=== PATIENT | female | born 1945 | race Caucasian/White ===

== ENCOUNTER 2018-06-19 09:48 | Emergency (ER) | payer MEDICARE, OTHER ==
[~2018-06-19] VITALS: Ht 154.9 cm; Wt 85.3 kg
[~2018-06-19 09:48] MED LIST: ASPI81CH PO; ASPI81EC PO; Ativan0.5 MG SL; CARV6.25 PO; CEPH500 PO; FURO20; FURO20 PO; FURO40 PO; GABA300 PO; GABA400 PO; GLIP10; INS70/30I SC; INSUASPI SC; INSULANI; INSULANI SC; LORA1 PO; METH10; METH10 PO; METO25ER PO; METO50 PO; POTA10T; POTA10T PO; SIMV20 PO; TRAM50; WARF5 PO; WARF6 PO
[2018-06-19 10:23] LABS: BASOPHILS ABSOLUTE AUTO 0.02 K/mm3 (0.00-0.23); BASOPHILS PERCENT AUTO 0 % (0-2); EOSINOPHILS ABSOLUTE AUTO 0.05 K/mm3 (0.00-0.68); EOSINOPHILS PERCENT AUTO 1 % (0-6); Hematocrit 43.3 % (33.0-51.0); IMMATURE GRAN ABSOLUTE AUTO 0.03 K/mm3 (0.00-0.10); IMMATURE GRAN PERCENT AUTO 1 % (0-1); LYMPHOCYTES PERCENT AUTO 18 % (21-46); MONOCYTES PERCENT AUTO 7 % (4-13); Mean Corpuscular HGB 29.2 pg (26.0-34.0); Mean Corpuscular HGB Conc 32.3 g/dL (31.5-36.5); Mean Corpuscular Volume 90 fL (80-100); NEUTROPHILS ABSOLUTE AUTO 4.57 K/mm3 (1.96-9.15); NEUTROPHILS PERCENT AUTO 74 % (41-73); Platelet Count 186 K/mm3 (150-400); RDW Coefficient Variation 13.3 % (11.7-14.2); RDW Standard Deviation 44.8 fL (35.1-46.3); Red Blood Cell Count 4.79 M/mm3 (3.80-5.20); White Blood Cell Count 6.17 K/mm3 (4.00-11.30)
[2018-06-19 10:47] LABS: Alanine Aminotransfer (ALT/SGP 35 U/L (12-78); Albumin, Blood 3.4 g/dL (3.4-5.0); Albumin/Globulin Ratio 0.8 (0.8-1.8); Alk Phos 73 U/L (50-136); Anion Gap 6 mmol/L (6-16); Aspartate Aminotrans (AST/SGOT 22 U/L (12-37); Bilirubin, Total 0.5 mg/dL (0.1-1.0); Blood Urea Nitrogen 11 mg/dL (8-24); Bun/Creatinine Ratio 19.3 (12.0-20.0); CO2, Blood 29 mmol/L (21-32); Calcium, Blood 8.7 mg/dL (8.5-10.1); Chloride, Blood 105 mmol/L (98-108); Creatinine, Blood 0.57 mg/dL (0.40-1.00); Globulin, Blood 4.2 g/dL (2.2-4.0); Glomerular Filtration Rate >60 (60-); Glucose, Blood 210 mg/dL (70-99); Potassium, Blood 4.2 mmol/L (3.5-5.5); Sodium, Blood 140 mmol/L (136-145); Total Protein, Blood 7.6 g/dL (6.4-8.2); Troponin I <0.015 ng/mL (0.000-0.040)
== END 2018-06-19 15:42 | disposition home or self-care (01) ==
LOC: ER 09:48
PROVIDERS: Physician Assistant
DX: I50.9 Heart failure, unspecified (principal); Z88.2 Allergy status to sulfonamides; Z88.1 Allergy status to other antibiotic agents; Z88.8 Allergy status to other drugs, medicaments and biological substances; Z79.899 Other long term (current) drug therapy; Z79.01 Long term (current) use of anticoagulants; Z79.4 Long term (current) use of insulin; Z79.82 Long term (current) use of aspirin; I48.91 Unspecified atrial fibrillation
CPT/HCPCS: 36415; 71046; 80053; 83880; 84484; 85025; 93005; 93010; 99285-25

== ENCOUNTER 2019-02-16 07:42 | Emergency (ER) | payer MEDICARE, OTHER ==
[~2019-02-16] VITALS: Ht 154.9 cm; Wt 84.4 kg
[2019-02-16] MEDS ORDERED: FURO40 PO (08:05)
[2019-02-16] MEDS ORDERED: POTA10T PO (08:05)
[2019-02-16] MEDS ORDERED: INSULANPEN SC (08:06)
[2019-02-16] MEDS ORDERED: NOVOLOG FL100 UNIT/1 SC (08:06)
[2019-02-16 09:02] LABS: BASOPHILS ABSOLUTE AUTO 0.02 K/mm3 (0.00-0.23); BASOPHILS PERCENT AUTO 0 % (0-2); EOSINOPHILS ABSOLUTE AUTO 0.01 K/mm3 (0.00-0.68); EOSINOPHILS PERCENT AUTO 0 % (0-6); Hematocrit 41.4 % (33.0-51.0); Hemoglobin 13.3 g/dL (11.5-16.0); IMMATURE GRAN PERCENT AUTO 1 % (0-1); LYMPHOCYTES ABSOLUTE AUTO 1.02 K/mm3 (0.84-5.20); LYMPHOCYTES PERCENT AUTO 7 % (21-46); MONOCYTES ABSOLUTE AUTO 1.15 K/mm3 (0.16-1.47); MONOCYTES PERCENT AUTO 8 % (4-13); Mean Corpuscular HGB 28.3 pg (26.0-34.0); Mean Corpuscular HGB Conc 32.1 g/dL (31.5-36.5); Mean Corpuscular Volume 88 fL (80-100); Mean Platelet Volume 10.4 fL (9.1-12.4); NEUTROPHILS ABSOLUTE AUTO 11.51 K/mm3 (1.96-9.15); NEUTROPHILS PERCENT AUTO 83 % (41-73); Platelet Count 183 K/mm3 (150-400); RDW Coefficient Variation 13.3 % (11.7-14.2); RDW Standard Deviation 43.1 fL (35.1-46.3); White Blood Cell Count 13.81 K/mm3 (4.00-11.30)
[2019-02-16 09:34] LABS: Alanine Aminotransfer (ALT/SGP 23 U/L (12-78); Albumin, Blood 3.4 g/dL (3.4-5.0); Albumin/Globulin Ratio 0.8 (0.8-1.8); Alk Phos 74 U/L (50-136); Anion Gap 6 mmol/L (6-16); Aspartate Aminotrans (AST/SGOT 18 U/L (12-37); Bilirubin, Total 1.1 mg/dL (0.1-1.0); Blood Urea Nitrogen 13 mg/dL (8-24); Bun/Creatinine Ratio 19.1 (12.0-20.0); CO2, Blood 30 mmol/L (21-32); Calcium, Blood 8.9 mg/dL (8.5-10.1); Chloride, Blood 102 mmol/L (98-108); Creatinine, Blood 0.68 mg/dL (0.40-1.00); Globulin, Blood 4.2 g/dL (2.2-4.0); Glomerular Filtration Rate >60 (60-); Glucose, Blood 217 mg/dL (70-99); Potassium, Blood 3.8 mmol/L (3.5-5.5); Sodium, Blood 138 mmol/L (136-145); Total Protein, Blood 7.6 g/dL (6.4-8.2)
[2019-02-16] MEDS ORDERED: Keflex500 MG PO (10:03)
[2019-02-17] MEDS ORDERED: GABA300 PO (19:44)
[2019-02-17] MEDS ORDERED: Coumadin2 MG PO (19:50)
[2019-02-17] MEDS ORDERED: Vitamin D2000 UNIT PO (19:53)
== END 2019-02-16 10:20 | disposition home or self-care (01) ==
LOC: ER 07:42
PROVIDERS: Emergency Medicine
DX: L03.115 Cellulitis of right lower limb (principal); E11.9 Type 2 diabetes mellitus without complications; I48.91 Unspecified atrial fibrillation; D72.829 Elevated white blood cell count, unspecified; Z88.2 Allergy status to sulfonamides; Z88.1 Allergy status to other antibiotic agents; Z88.8 Allergy status to other drugs, medicaments and biological substances; Z79.899 Other long term (current) drug therapy; Z79.01 Long term (current) use of anticoagulants; Z79.4 Long term (current) use of insulin
CPT/HCPCS: 36415; 73630; 80053; 85025; 96365; 96375; 99283-25; J2405; J3010

== ENCOUNTER 2019-02-17 18:20 | Inpatient (IN) | payer MEDICARE, OTHER ==
[~2019-02-17] VITALS: Ht 152.4 cm; Wt 84.4 kg
[~2019-02-17 18:20] MED LIST changes: +INSULANPEN SC; +Keflex500 MG PO; +NOVOLOG FL100 UNIT/1 SC
[2019-02-17 19:10] LABS: BASOPHILS ABSOLUTE AUTO 0.03 K/mm3 (0.00-0.23); BASOPHILS PERCENT AUTO 0 % (0-2); EOSINOPHILS ABSOLUTE AUTO 0.06 K/mm3 (0.00-0.68); EOSINOPHILS PERCENT AUTO 1 % (0-6); Hematocrit 39.6 % (33.0-51.0); Hemoglobin 12.9 g/dL (11.5-16.0); IMMATURE GRAN PERCENT AUTO 1 % (0-1); LYMPHOCYTES ABSOLUTE AUTO 1.64 K/mm3 (0.84-5.20); LYMPHOCYTES PERCENT AUTO 13 % (21-46); MONOCYTES ABSOLUTE AUTO 0.79 K/mm3 (0.16-1.47); MONOCYTES PERCENT AUTO 6 % (4-13); Mean Corpuscular HGB 29.3 pg (26.0-34.0); Mean Corpuscular HGB Conc 32.6 g/dL (31.5-36.5); Mean Corpuscular Volume 90 fL (80-100); Mean Platelet Volume 10.5 fL (9.1-12.4); NEUTROPHILS ABSOLUTE AUTO 9.72 K/mm3 (1.96-9.15); NEUTROPHILS PERCENT AUTO 79 % (41-73); Platelet Count 189 K/mm3 (150-400); RDW Coefficient Variation 13.2 % (11.7-14.2); RDW Standard Deviation 43.9 fL (35.1-46.3); White Blood Cell Count 12.34 K/mm3 (4.00-11.30)
[2019-02-17 19:34] LABS: Anion Gap 5 mmol/L (6-16); Blood Urea Nitrogen 12 mg/dL (8-24); Bun/Creatinine Ratio 17.1 (12.0-20.0); CO2, Blood 30 mmol/L (21-32); Chloride, Blood 100 mmol/L (98-108); Glomerular Filtration Rate >60 (60-); Glucose, Blood 249 mg/dL (70-99); Potassium, Blood 3.8 mmol/L (3.5-5.5); Sodium, Blood 135 mmol/L (136-145)
[2019-02-17] MEDS ORDERED: GABA300 PO (19:44)
[2019-02-17] MEDS ORDERED: Coumadin2 MG PO (19:50)
[2019-02-17] MEDS ORDERED: Vitamin D2000 UNIT PO (19:53)
[2019-02-17 20:58] LABS: International Normalized Ratio 1.69; Prothrombin Time Results 17.1 Sec (9.7-11.5)
[2019-02-18 04:25] LABS: BASOPHILS ABSOLUTE AUTO 0.03 K/mm3 (0.00-0.23); BASOPHILS PERCENT AUTO 0 % (0-2); EOSINOPHILS ABSOLUTE AUTO 0.18 K/mm3 (0.00-0.68); EOSINOPHILS PERCENT AUTO 2 % (0-6); Hematocrit 35.8 % (33.0-51.0); Hemoglobin 11.2 g/dL (11.5-16.0); IMMATURE GRAN PERCENT AUTO 1 % (0-1); LYMPHOCYTES ABSOLUTE AUTO 1.91 K/mm3 (0.84-5.20); LYMPHOCYTES PERCENT AUTO 16 % (21-46); MONOCYTES ABSOLUTE AUTO 0.98 K/mm3 (0.16-1.47); MONOCYTES PERCENT AUTO 8 % (4-13); Mean Corpuscular HGB 28.1 pg (26.0-34.0); Mean Corpuscular HGB Conc 31.3 g/dL (31.5-36.5); Mean Corpuscular Volume 90 fL (80-100); Mean Platelet Volume 10.5 fL (9.1-12.4); NEUTROPHILS ABSOLUTE AUTO 8.69 K/mm3 (1.96-9.15); NEUTROPHILS PERCENT AUTO 73 % (41-73); Platelet Count 179 K/mm3 (150-400); RDW Coefficient Variation 13.3 % (11.7-14.2); RDW Standard Deviation 44.1 fL (35.1-46.3); Red Blood Cell Count 3.99 M/mm3 (3.80-5.20); White Blood Cell Count 11.89 K/mm3 (4.00-11.30)
[2019-02-18 04:40] LABS: Anion Gap 5 mmol/L (6-16); Blood Urea Nitrogen 11 mg/dL (8-24); Bun/Creatinine Ratio 14.2 (12.0-20.0); CO2, Blood 32 mmol/L (21-32); Calcium, Blood 8.8 mg/dL (8.5-10.1); Chloride, Blood 102 mmol/L (98-108); Creatinine, Blood 0.78 mg/dL (0.40-1.00); Glomerular Filtration Rate >60 (60-); Glucose, Blood 138 mg/dL (70-99); International Normalized Ratio 1.76; Potassium, Blood 3.8 mmol/L (3.5-5.5); Prothrombin Time Results 17.7 Sec (9.7-11.5); Sodium, Blood 139 mmol/L (136-145)
--- NOTE | 2019-02-18 06:40 | NUR ---
SHIFT SUMMARY PT WAS A NEW ADMIT DURING THE NIGHT, ARRIVING ON THE FLOOR AT 2210. SHE WAS ADMITTED FOR RLE CELLULITIS. PT IS A&O X 4, AND A SBA IN THE ROOM WITH A FWW. SHE DENIED ANY COMPLAINTS OF ACUTE PAIN, NAUSEA OR SOB. VITAL SIGNS STABLE SINCE ADMISSION. PT SLEPT WELL DURING THE NIGHT. NO OTHER ACUTE CHANGES IN PT CONDITION NOTED SINCE ADMISSION. WILL CONTINUE TO MONITOR AND TREAT PER EMAR UNTIL HAND OFF TO DAY SHIFT RN.
--- NOTE | 2019-02-18 11:37 | NUR ---
0700 [facility] care Pateint gave student permission to provide care on 02/18/19 from [id number].
--- NOTE | 2019-02-18 17:02 | NUR ---
SHIFT SUMMARY NO ACUTE CHANGES. PATIENT MEDICATED X2 FOR PAIN THIS SHIFT. DENIES NAUSEA AND SHORTNESS OF BREATH. PATIENT UP SBA W/FWW TO BR. PATIENT U IN RECLINER THIS AFTERNOON. PATIENT VISITING WITH FRIENDS AND WATCHING TV TODAY. CALL LIGHT IN REACH.
[2019-02-19 05:10] LABS: BASOPHILS ABSOLUTE AUTO 0.03 K/mm3 (0.00-0.23); BASOPHILS PERCENT AUTO 0 % (0-2); EOSINOPHILS ABSOLUTE AUTO 0.18 K/mm3 (0.00-0.68); EOSINOPHILS PERCENT AUTO 2 % (0-6); Hematocrit 36.2 % (33.0-51.0); Hemoglobin 11.4 g/dL (11.5-16.0); IMMATURE GRAN ABSOLUTE AUTO 0.08 K/mm3 (0.00-0.10); IMMATURE GRAN PERCENT AUTO 1 % (0-1); LYMPHOCYTES ABSOLUTE AUTO 1.35 K/mm3 (0.84-5.20); LYMPHOCYTES PERCENT AUTO 16 % (21-46); MONOCYTES ABSOLUTE AUTO 0.81 K/mm3 (0.16-1.47); MONOCYTES PERCENT AUTO 10 % (4-13); Mean Corpuscular HGB Conc 31.5 g/dL (31.5-36.5); Mean Corpuscular Volume 89 fL (80-100); Mean Platelet Volume 10.3 fL (9.1-12.4); NEUTROPHILS ABSOLUTE AUTO 6.04 K/mm3 (1.96-9.15); NEUTROPHILS PERCENT AUTO 71 % (41-73); Platelet Count 217 K/mm3 (150-400); RDW Coefficient Variation 13.3 % (11.7-14.2); RDW Standard Deviation 43.3 fL (35.1-46.3); Red Blood Cell Count 4.07 M/mm3 (3.80-5.20); White Blood Cell Count 8.49 K/mm3 (4.00-11.30)
[2019-02-19 05:23] LABS: International Normalized Ratio 1.44; Prothrombin Time Results 14.8 Sec (9.7-11.5)
--- NOTE | 2019-02-19 06:38 | NUR ---
PAN DEVULCANIZER HELPER SUMMARY PT SLEPT WELL THROUGHOUT THE NIGHT. PLEASANT AND COOPERATIVE. CALLS APPRIOPRATELY EACH TIME. VSS. MEDICATED PER EMAR FOR RIGHT LEG CELLULITIS PAIN. ANTIBIOTICS GIVEN. WILL CONTINUE TO MONITOR.
--- NOTE | 2019-02-19 16:06 | NUR ---
SUMMARY: PT ADMITTED FOR CELLULITIS OF RLE. NO ACUTE CHANGE TODAY. A/O, VSS. CSM INTACT TO R FOOT, NO OPEN SORES NOTED. PT UP WITH SASKIA CHERY IN ROOM. ENCOURAGED ELEVATING R FOOT. PT RECIEVED PAIN MEDS PER EMAR. PLAN IS CONTINUE IV ANTIBIOTICS AND MONITOR. WILL PASS REPORT TO SARAH ALEMAN.
[2019-02-20 05:03] LABS: International Normalized Ratio 1.55; Prothrombin Time Results 15.8 Sec (9.7-11.5)
--- NOTE | 2019-02-20 05:55 | NUR ---
SIDEROGRAPHER SUMMARY PT SLEPT WELL THROUGHOUT THE NIGHT. DENIED NAUSEA, SOB. ANTIBIOTICS GIVEN PER EMAR. PT QUESTIONED STAFF ABOUT WHY SHE WAS RECIVEING INSULIN AT A DIFFERENT TIME THAN WHAT SHE NORMALLY DOES AT HOME. WAS EXPLAINED TO THE PT THAT INSULIN WAS TO BE GIVEN AT BEDTIME PER 'S ORDERS AND A LOT OF THE TIMES MEDS PTS RECIVE IN THE HOSPITAL ARE NOT ALWAYS GOING TO MATCH THE TIMING THEY RECIVE AT HOME. PT SEEMED A LITTLE FRUSTRATED ABOUT THIS. NO ACUTE CHANGES. PT MIGHT BE DISCHARGED TODAY.
[2019-02-20] MEDS ORDERED: ACET325 PO (10:54)
[2019-02-20] MEDS ORDERED: BISA5EC PO (10:56)
[2019-02-20] MEDS ORDERED: CEPH500 PO (10:58)
[2019-02-20] MEDS ORDERED: CULTURELLE1 EACH PO (10:59)
--- NOTE | 2019-02-20 11:57 | NUR ---
PT DISCHARGED AT 1130. AOX4 AND COOPERATIVE OF CARE. DENIED ANY PAIN AND WAS ABLE TO AMBULATE WITH MINIMAL ASSISTANCE. PT HAD ALL PAPERS REVIEWED AND EDUCATIONAL MATERIAL PROVIDED. PERSONAL BELONGINGS WITH PT. APPOINTMENT SCHEDULED FOR 02/25 @ [address] FRANCIS. NO DISTRESS NOTED, PT ESCORTED VIA WHEEL CHAIR.
== END 2019-02-20 11:43 | disposition home or self-care (01) | DRG 603 ==
LOC: ER 18:20 → MEDS 21:53 → ENPENDDIS 02-20 10:30 → MEDS 02-20 11:43
PROVIDERS: Internal Medicine; Physician Assistant; ADMIT Family Medicine
DX: L03.115 Cellulitis of right lower limb (principal); F11.20 Opioid dependence, uncomplicated; E87.1 Hypo-osmolality and hyponatremia; E11.9 Type 2 diabetes mellitus without complications; I48.0 Paroxysmal atrial fibrillation; G89.29 Other chronic pain; Z79.4 Long term (current) use of insulin; Z95.1 Presence of aortocoronary bypass graft; Z79.01 Long term (current) use of anticoagulants
CPT/HCPCS: 36415; 80048; 82947; 83605; 85025; 85610; 96365; 99284-25; J0690; J1815; J1885; J2185; J7050

== ENCOUNTER 2021-02-21 08:58 | Observation (INO) | payer MEDICARE, OTHER ==
[~2021-02-21] VITALS: Ht 154.9 cm; Wt 83.9 kg
[~2021-02-21 08:58] MED LIST changes: +ACET325 PO; +BISA5EC PO; +CULTURELLE1 EACH PO; +Coumadin2 MG PO; +Vitamin D2000 UNIT PO
[2021-02-21 09:45] LABS: BASOPHILS ABSOLUTE AUTO 0.02 K/mm3 (0.00-0.23); BASOPHILS PERCENT AUTO 0 % (0-2); EOSINOPHILS ABSOLUTE AUTO 0.08 K/mm3 (0.00-0.68); EOSINOPHILS PERCENT AUTO 1 % (0-6); Hemoglobin 13.6 g/dL (11.5-16.0); IMMATURE GRAN ABSOLUTE AUTO 0.03 K/mm3 (0.00-0.10); IMMATURE GRAN PERCENT AUTO 0 % (0-1); LYMPHOCYTES ABSOLUTE AUTO 0.98 K/mm3 (0.84-5.20); LYMPHOCYTES PERCENT AUTO 12 % (21-46); MONOCYTES ABSOLUTE AUTO 0.48 K/mm3 (0.16-1.47); MONOCYTES PERCENT AUTO 6 % (4-13); Mean Corpuscular HGB 27.9 pg (26.0-34.0); Mean Corpuscular HGB Conc 31.6 g/dL (31.5-36.5); Mean Corpuscular Volume 88 fL (80-100); Mean Platelet Volume 9.7 fL (9.1-12.4); NEUTROPHILS ABSOLUTE AUTO 6.79 K/mm3 (1.96-9.15); NEUTROPHILS PERCENT AUTO 81 % (41-73); Platelet Count 216 K/mm3 (150-400); RDW Coefficient Variation 14.6 % (11.7-14.2); RDW Standard Deviation 46.7 fL (35.1-46.3); Red Blood Cell Count 4.88 M/mm3 (3.80-5.20); White Blood Cell Count 8.38 K/mm3 (4.00-11.30)
[2021-02-21 09:54] LABS: Alanine Aminotransfer (ALT/SGP 29 U/L (12-78); Albumin, Blood 3.3 g/dL (3.4-5.0); Albumin/Globulin Ratio 0.7 (0.8-1.8); Alk Phos 84 U/L (50-136); Anion Gap 3 mmol/L (6-16); Aspartate Aminotrans (AST/SGOT 23 U/L (12-37); Blood Urea Nitrogen 12 mg/dL (8-24); CO2, Blood 29 mmol/L (21-32); Calcium, Blood 9.3 mg/dL (8.5-10.1); Chloride, Blood 107 mmol/L (98-108); Creatinine, Blood 0.71 mg/dL (0.40-1.00); Globulin, Blood 4.7 g/dL (2.2-4.0); Glomerular Filtration Rate >60 (60-); Glucose, Blood 165 mg/dL (70-99); Potassium, Blood 4.1 mmol/L (3.5-5.5); Sodium, Blood 139 mmol/L (136-145); Troponin I <0.015 ng/mL (0.000-0.040)
[2021-02-21 11:07] LABS: Source, Urine Clean Catch
[2021-02-21 11:42] LABS: Bilirubin, Urine Neg (Neg); Blood, Urine Neg (Neg); Glucose Qualitative, Urine Neg (Neg); Ketones, Urine Neg (Neg); Leukocyte Esterase, Urine Neg (Neg); Nitrite, Urine Neg (Neg); Protein, Urine 1+ (Neg); Specific Gravity, Urine 1.015 (1.003-1.022); Urobilinogen, Urine NORM (Normal); pH, Urine 6.5 (5.0-8.0)
[2021-02-21 12:00] LABS: Appearance, Urine Clear (Clear); Color, Urine Yellow (P-Yellow)
[2021-02-21 13:12] LABS: International Normalized Ratio 1.45; Prothrombin Time Results 14.9 Sec (9.7-11.5)
--- NOTE | 2021-02-21 14:20 | NUR ---
echocardiogram complete
--- NOTE | 2021-02-21 17:50 | NUR ---
SHIFT SUMMARY PATIENT WAS AN ADMIT FROM THE ED AT 1530. PATIENT WAS ADMITTED FOR HYPERTENSION CRISIS AND BP HAS BEEN IN THE 180S / 70S. PATIENT IS ALERT AND ORIENTED X4. PATIENT IS PLEASENT AND COOPERATIVE WITH CARE. NO ACUTE EVENTS THIS SHIFT. NO COMPLAINTS OF PAIN, SOB, NAUSEA, OR VOMITTING. CALL LIGHT IN REACH. WILL MONITOR UNTIL SHIFT CHANGE.
[2021-02-22 01:52] LABS: Hematocrit 37.3 % (33.0-51.0); Hemoglobin 12.2 g/dL (11.5-16.0); Mean Corpuscular HGB 28.5 pg (26.0-34.0); Mean Corpuscular HGB Conc 32.7 g/dL (31.5-36.5); Mean Corpuscular Volume 87 fL (80-100); Platelet Count 214 K/mm3 (150-400); RDW Coefficient Variation 14.5 % (11.7-14.2); RDW Standard Deviation 46.5 fL (35.1-46.3); Red Blood Cell Count 4.28 M/mm3 (3.80-5.20); White Blood Cell Count 9.11 K/mm3 (4.00-11.30)
[2021-02-22 02:06] LABS: International Normalized Ratio 1.48; Prothrombin Time Results 15.1 Sec (9.7-11.5)
[2021-02-22 02:11] LABS: Anion Gap 2 mmol/L (6-16); Blood Urea Nitrogen 17 mg/dL (8-24); CHOL/HDL RATIO 4.8; CO2, Blood 32 mmol/L (21-32); Calcium, Blood 9.1 mg/dL (8.5-10.1); Chloride, Blood 105 mmol/L (98-108); Cholesterol 235 mg/dL (50-200); Creatinine, Blood 0.85 mg/dL (0.40-1.00); Glomerular Filtration Rate >60 (60-); HDL Cholesterol 49 mg/dL (>39); LDL/HDL RATIO 3.3; Low Density Lipoprotein Chol 160 mg/dL (0-110); Potassium, Blood 3.9 mmol/L (3.5-5.5); Sodium, Blood 139 mmol/L (136-145); Triglycerides 131 mg/dL (30-160); Troponin I <0.015 ng/mL (0.000-0.040); Very Low Density Lipoprot Chol 26 mg/dL (6-32)
[2021-02-22 02:12] LABS: Glucose, Blood 153 mg/dL (70-99)
--- NOTE | 2021-02-22 05:12 | NUR ---
SHIFT [place] PT ALERT AND ORIENTED. RESTING ON BED DURING. HR RATE DROPPED TO 44. PT EXPRESSED THAT SOMETHING SHE HAS BEFORE. NO ACUTE DISTRESS AT THIS TIME.
[2021-02-22] MEDS ORDERED: LISI5 PO (13:09)
[2021-02-22] MEDS ORDERED: ATOR10 PO (13:11)
[2021-02-22] MEDS ORDERED: MIRALAX17 GM PO (13:11)
[2021-02-22] MEDS ORDERED: METF500 PO (13:11)
--- NOTE | 2021-02-22 16:43 | NUR ---
PT DISCHARGED HOME @ 1615, DISCHARGE TEACHING DONE.
== END 2021-02-22 16:43 | disposition home or self-care (01) ==
LOC: ER 08:58 → ERHOLD 08:59 → MEDS 15:26 → ENPENDDIS 02-22 12:06 → MEDS 02-22 16:43
PROVIDERS: Emergency Medicine; ADMIT Internal Medicine
DX: I16.0 Hypertensive urgency (principal); I11.9 Hypertensive heart disease without heart failure; E11.9 Type 2 diabetes mellitus without complications; E78.5 Hyperlipidemia, unspecified; I27.20 Pulmonary hypertension, unspecified; I48.0 Paroxysmal atrial fibrillation; I25.10 Atherosclerotic heart disease of native coronary artery without angina pectoris; E66.9 Obesity, unspecified; G89.29 Other chronic pain; M54.9 Dorsalgia, unspecified; Z79.01 Long term (current) use of anticoagulants; Z79.4 Long term (current) use of insulin; Z95.1 Presence of aortocoronary bypass graft; Z88.1 Allergy status to other antibiotic agents; Z88.2 Allergy status to sulfonamides; Z88.8 Allergy status to other drugs, medicaments and biological substances; Z68.35 Body mass index [BMI] 35.0-35.9, adult
CPT/HCPCS: 36415; 71045; 80048; 80053; 80061; 82947; 83036; 83880; 84443; 84484; 85025; 85027; 85610; 85730; 93005; 93010; 93306; 93970; A9270; J0360; J1815; J1940

== ENCOUNTER 2022-05-22 20:16 | Inpatient (IN) | payer MEDICARE, OTHER ==
[~2022-05-22] VITALS: Ht 152.4 cm; Wt 78.7 kg
[~2022-05-22 20:16] MED LIST changes: +ATOR10 PO; +LISI20 PO; +METF500 PO; +MIRALAX17 GM PO
[2022-05-22 21:15] LABS: BASOPHILS ABSOLUTE AUTO 0.03 K/mm3 (0.00-0.23); BASOPHILS PERCENT AUTO 0 % (0-2); EOSINOPHILS ABSOLUTE AUTO 0.06 K/mm3 (0.00-0.68); EOSINOPHILS PERCENT AUTO 1 % (0-6); Hematocrit 35.5 % (33.0-51.0); Hemoglobin 11.6 g/dL (11.5-16.0); IMMATURE GRAN ABSOLUTE AUTO 0.14 K/mm3 (0.00-0.10); IMMATURE GRAN PERCENT AUTO 2 % (0-1); LYMPHOCYTES ABSOLUTE AUTO 1.08 K/mm3 (0.84-5.20); LYMPHOCYTES PERCENT AUTO 11 % (21-46); MONOCYTES ABSOLUTE AUTO 0.48 K/mm3 (0.16-1.47); MONOCYTES PERCENT AUTO 5 % (4-13); Mean Corpuscular HGB Conc 32.7 g/dL (31.5-36.5); Mean Corpuscular Volume 86 fL (80-100); Mean Platelet Volume 9.7 fL (9.1-12.4); NEUTROPHILS PERCENT AUTO 81 % (41-73); Platelet Count 218 K/mm3 (150-400); RDW Coefficient Variation 14.7 % (11.7-14.2); RDW Standard Deviation 45.6 fL (35.1-46.3); Red Blood Cell Count 4.15 M/mm3 (3.80-5.20); White Blood Cell Count 9.49 K/mm3 (4.00-11.30)
[2022-05-22 21:33] LABS: Albumin, Blood 3.4 g/dL (3.4-5.0); Albumin/Globulin Ratio 0.7 (0.8-1.8); Bilirubin, Total 0.9 mg/dL (0.1-1.0); Calcium, Blood 9.2 mg/dL (8.5-10.1); Creatinine, Blood 1.04 mg/dL (0.40-1.00); Globulin, Blood 4.6 g/dL (2.2-4.0); Potassium, Blood 4.7 mmol/L (3.5-5.5)
[2022-05-22] MEDS ORDERED: PIOGLITAZONE HC15 MG PO (21:36)
[2022-05-22] MEDS ORDERED: NAPROXEN500 MG PO (21:36)
[2022-05-22 22:22] LABS: Influenza A, PCR NEGATIVE (NEGATIVE); Influenza B, PCR NEGATIVE (NEGATIVE); Resp Syncytial Virus, PCR NEGATIVE (NEGATIVE); SARS-Cov-2 (COVID-19) PCR, MMC NEGATIVE (NEGATIVE)
[2022-05-22 23:58] LABS: International Normalized Ratio 1.41; Prothrombin Time Results 14.5 Sec (9.7-11.5)
--- NOTE | 2022-05-23 01:04 | NUR ---
ASSUMPTION OF CARE THIS RN ASSUMED CARE OF PT AT 0000. REPORT FROM LOVE [facility]. PT ARRIVED VIA ER GURNEY ON BIPAP, SETTINGS: 15/10 W/FIO2 OF 45%. PT TRANSFERRED TO PCU HOSPITAL BED. PT REPORTS MILD SOB, BUT STATES "IT IS BETTER SINCE ARRIVING AND BEING ON THIS MACHINE". PT TOLERATING BIPAP WELL. PT DENIES CP OR PRESSURE, DENIES GENERAL PAIN. PT APPEARS ANA AND PRETTY TIRED. A&0 X4, ANSWERING AND RESPONDING TO QUESTION APPROPRIATELY. VS; BP 117/69, SR W/HR OF 76, RR 18, SPO2 97% ON BIPAP, TEMP 98.7. MODERATE AMOUNT OF EDEMA NOTED IN EXTREMITIES. PT REPORTS THIS IS NOT NEW. PT HAS NITRO PATCH IN PLACE, PLACED IN ER. SKIN IS OVERALL DRY, FRAGILE AND VARIOUS SCABS AND BRUISING T/O. YEAST/FUNGAL INFECTION NOTED IN PANNUS AREA UNDER SKINFOLDS. PT STATES SHE HAS HAD THIS A WHILE. MOJICA IN PLACE AND DRAINING CLEAR YELLOW URINE TO GRAVITY. PT ORIENTED TO ROOM. DENIES ANY NEEDS OR CONCERNS AT THIS TIME. CALL LIGHT IN REACH AND BED IN LOWEST POSITION
[2022-05-23 04:07] LABS: International Normalized Ratio 1.52; Prothrombin Time Results 15.5 Sec (9.7-11.5)
[2022-05-23 04:11] LABS: Bun/Creatinine Ratio 23.6 (12.0-20.0); Calcium, Blood 8.5 mg/dL (8.5-10.1); Creatinine, Blood 1.1 mg/dL (0.40-1.00); Potassium, Blood 4.5 mmol/L (3.5-5.5)
--- NOTE | 2022-05-23 05:59 | NUR ---
SHIFT SUMMARY PT REMAINS A&O. PT REPORTS SHE IS FEELING BETTER AND SOB HAS IMPROVED SOME. THIS RN DID NOT NOTE ANY SOB OR DIFFICULTY BREATHING SINCE TRANSFER TO PCU. PT WORE BIPAP MOST OF THE NIGHT AND THEN SWITCHED TO 6L VIA NC, SPO2 92 - 96%. PT STILL CURRENTLY ON 6L AND MAINTAINING WELL. PT RESTED ON AND OFF THROUGHOUT NIGHT BUT "NOT MUCH". VSS THROUGHOUT SHIFT, BP HAVE DECREASED SINCE ADMISSION. SBP NOW 120'S - 130'S. NO ACUTE CHANGES FROM ASSUMPTION OF CARE NOTE. BIPAP ON STANDBY AT BEDSIDE. MOJICA IN PLACE AND DRAINING TO GRAVITY; 1300 MLS OUT THIS SHIFT. CALL LIGHT IN REACH AND BED IN LOWEST POSITION. WILL UPDATE ON COMING RN
[2022-05-23] MEDS ORDERED: METO25 PO (07:37)
--- NOTE | 2022-05-23 17:06 | NUR ---
SHIFT SUMMARY NO ACUTE CHANGES THIS SHIFT. PT A&OX4, SP02>90% ON RA. DENIES SOB. TELEMETRY SHOWS A PACED, HR 60'S. WILL GO TO 70'S-100'S W/ AMBULATION. PT C/O OF INTERMITTENT "SHORT BURSTS" OF CP, COMES AND GOES. INCREASES W/ ANXIETY/WORRYING. A FEW 5 BEAT RUNS OF VTACH PER CISTERN ROOM OPERATOR WELL ONE BBB FLIP FOR A BRIEF PERIOD, SEE TELE STRIP IN CHART. PT DENIES PAIN. RUQ ABD TENDER. C/O OF CONSTIPATION. FLEET ENEMA, STOOL SOFTNER, MIROLAX, GIVEN PER EMAR. BROWN COW GIVEN W/ NO SUCCESS. UP TO BSC W/ MINIMAL HELP. ENCOURAGED MOVEMENT. PT CONTINUES TO PASS A LOT OF GAS. VOIDED W/ URINAL AT BEDSIDE. PT RECEIVED FIRST PORTION OF STRESS TEST TODAY, AWAITING SECOND PORTION IN MORNING. NO CAFFIENE. CALL LIGHT IN REACH.
--- NOTE | 2022-05-23 17:50 | NUR ---
SHIFT SUMMARY NO ACUTE CHANGES THIS SHIFT. PT A&OX4. SP02>90% oN 4L NC. STATES BREATHING FEELS "SO MUCH BETTER" THAN YESTERDAY. CURRENTLY DIURESING. TELEMETRY SHOWS MOSTLY NSR, HR 70'S. VSS. C/O OF BACK/LEG PAIN. MEDICATED PER EMAR X2. MOJICA CATHETER DRAINING CLEAR YELLOW URINE TO GRAVITY. NO BM THIS SHIFT. RESTING IN ROOM. CALL LIGHT IN REACH.
--- NOTE | 2022-05-23 20:25 | NUR ---
ASSUMPTION OF CARE THIS RN ASSUMED CARE OF PT AT 1900. PT SITTING UP IN BED W/HOB ELEVATED AND APPEARS TO BE COMFORTABLE. PT ON 4 L VIA NC, SPO0 94%. PT DENIES SOB OR DIFFICULTY BREATHING. REPORTS A "BIG IMPROVEMENT" SINCE ADMISSION. PT DOES NOT APPEAR TO BE IN RESPIRATORY DISTRESS OR HAVING ANY DIFFICULTY BREATHING AT THIS TIME. RR AND WOB WNL. VS; BP 177/64, HR 92, RR 16, SPO2 94%, TEMP 97.9. PT DENIES HEADACHE OR GENERAL PAIN AT THIS TIME. DENIES N/V, LIGHTHEADNESS OR DIZZINESS. DENIES CP OR PRESSURE. PT DOES REPORT BEING "TIRED". BUT EXPRESSES NO OTHER CONCERNS OR NEEDS AT THIS TIME. MOJICA CATHETER IN PLACE AND DRAINING TO GRAVITY; DRAINING CLEAR, YELLOW URINE. CALL LIGHT IN REACH AND BED IN LOWEST POSITION.
--- NOTE | 2022-05-23 23:04 | NUR ---
UPDATE INITIAL VS SHOWED SBP OF 177. THIS RN ADMINSTERED 10 MG OF HYDRALAZINE IV PER EMAR. REASSESSMENT OF BP SHOWS 159/70. 2100 LOPRESSOR ALSO ADMINSTERED AT THIS TIME. AFTER ADMINISTRATION OF HYDRALAZINE PT REPORTS FEELING "HOT" AND THAT HER "HEART WAS BEATING FAST". MONITORED SHOWED HR OF 100 DURING THIS TIME. BY THE TIME THIS RN ANSWERED CALL LIGHT FOR THIS CONCERN, PT STATES THAT BOTH HAVE SUBSIDED. MONITOR SHOWED HR OF 92 WHEN RN IN ROOM. PT APPEARS MILDLY FLUSHED. SINCE PT STATES IT IS GONE AND SHE FEELS BETTER. CALL LIGHT IN REACH AND BED IN LOWEST POSITION
[2022-05-24 04:33] LABS: International Normalized Ratio 1.67
--- NOTE | 2022-05-24 04:51 | NUR ---
UPDATE 0400 VITAL SIGNS SHOWED BP 0F 169/63. 10 MG OF HYDRALAZINE IV ADMINISTERED. REASSESSMENT OF BP SHOWS 150/54. PT DENIES ANY CHANGES OR SX. CALL LIGHT IN REACH AND BED IN LOWEST POSITION
--- NOTE | 2022-05-24 05:45 | NUR ---
SHIFT SUMMARY PT REMAINS A&O X4. PT DENIES SOB THROUGHOUT SHIFT, CURRENTLY ON 4 L AND HAS BEEN THROUGHOUT THIS SHIFT. SPO2 93 - 96%. NO RESPIRATORY DISTRESS NOTED. PT DID HAVE HTN X2 WHEN VS CHECKED (SEE NURSING NOTE). PT MEDICATED WITH 10 MG OF HYDRALAZINE IV X2. REASSESSMENTS DID SHOW SOME IMPROVEMENTS. CBG STABLE. PT ENCOURAGED TO REPOSITION THROUGHOUT SHIFT AND EDUCATION ON PRESSURE ULCER PREVENTION AND IMPORTANCE OF REPOSITIONING. PT VERBALIZED UNDERSTANDING. MOJICA CATHETER IN PLACE DRAINING CLEAR YELLOW URINE TO GRAVITY. NO OTHER ACUTE CHANGES THROUGHOUT SHIFT. PT IS RESTING IN ROOM CURRENTLY. CALL LIGHT IN REACH AND BED IN LOWEST POSITION. WILL UPDATE ONCOMING RN.
--- NOTE | 2022-05-24 17:53 | NUR ---
SHIFT SUMMARY NO ACUTE CHANGES THIS SHIFT. VSS. SP02>90% ON 4L NC. PT CHANGED TO MEDICAL STATUS, NO TELE. C/O OF LEG PAIN, MEDICATED X2 PER EMAR THIS SHIFT. MOJICA CATHETER DRAINING TO GRAVITY. NO BM. PT UP IN CHAIR THIS AFTERNOON, AMBULATED 1 PERSON ASSIST. DENIED SOB. CALL LIGHT IN REACH. PT STATES LOOKING FORWARD TO GOING HOME IN THE MORNING.
--- NOTE | 2022-05-24 22:06 | NUR ---
TRANSFER TO MEDICAL FLOOR [id number] PT A&Ox4, CALLS AND COMMUNICATES NEEDS APPROPRIATELY. TITRATED PT TO 3L O2 VIA NC, Sp02> 92%, DENIES SOB. BP ELEVATED, ADMINISTERED SCHEDULED BP MANAGMENT MEDICATIONS. PT NOT ON TELE. DENIES CP/PRESSURE. MOJICA CATHETER IN PLACE, PATENT, DRAINING CLEAR YELLOW URINE TO GRAVITY. REPORT GIVEN TO MEDICAL FLOOR RN. PT TRANSFERED TO MEDICAL FLOOR 338 VIA HOSPITAL BED WITH ALL BELONGINGS AT APPROXIMATELY 2200 BY CLINICAL STAFF.
[2022-05-25 09:09] LABS: International Normalized Ratio 1.56; Prothrombin Time Results 15.9 Sec (9.7-11.5)
[2022-05-25 09:12] LABS: Bun/Creatinine Ratio 29.3 (12.0-20.0); Calcium, Blood 9.5 mg/dL (8.5-10.1); Creatinine, Blood 1.47 mg/dL (0.40-1.00); Potassium, Blood 4.6 mmol/L (3.5-5.5)
[2022-05-25] MEDS ORDERED: AMLO5 PO (12:35)
[2022-05-25] MEDS ORDERED: METO50ER PO (12:48)
[2022-05-25 15:21] LABS: Bun/Creatinine Ratio 32.9 (12.0-20.0); Calcium, Blood 9.2 mg/dL (8.5-10.1); Creatinine, Blood 1.4 mg/dL (0.40-1.00); Potassium, Blood 4.8 mmol/L (3.5-5.5)
--- NOTE | 2022-05-25 18:04 | NUR ---
SHIFT SUMMARY PT A&OX4 AND IN PLEASENT MOOD T/O SHIFT. SHOWERED THIS SHIFT, BEDDING CHANGED. TOLERATING PO INTAKE WELL AT THIS TIME. PROBABLE DC TOMORROW PENDING LABS. AMBULATING ONE PERSON ASSIST. PAIN MEDICATED PER EMAR. HOME O2 @ BEDSIDE. CALL LIGHT W/IN REACH. 1X FWW. PT C/O CONSTIPATION, PLAN TO MEDICATE PER EMAR.
--- NOTE | 2022-05-26 06:00 | NUR ---
END OF SHIFT NURSING REPORT - PM Patient is a 76 y/o female admitted for acute on chronic CHF. She is AOX4, declines any pain or discomfort. Kuhn discontinued this yesterday afternoon, and has voided x4, denies any pressure or pain with urination. No acute events overnight, plan to Dc home today.
[2022-05-26 06:26] LABS: International Normalized Ratio 1.59; Prothrombin Time Results 16.2 Sec (9.7-11.5)
[2022-05-26 08:53] LABS: Magnesium, Blood 2.5 mg/dL (1.6-2.4)
[2022-05-26 08:56] LABS: Bun/Creatinine Ratio 35.4 (12.0-20.0); Calcium, Blood 9.2 mg/dL (8.5-10.1); Creatinine, Blood 1.58 mg/dL (0.40-1.00); Potassium, Blood 4.8 mmol/L (3.5-5.5)
--- NOTE | 2022-05-26 13:15 | NUR ---
DISCHARGE DC COMPLETE PT WAITING FOR RIDE AT THIS TIME, IV REMOVED. TOLERATING PO INTAKE, AMBULATING 1X. DENIES PAIN. CALL LIGHT W/IN REACH. MEDS FAXED. VSS. GALINA OTERO YESTERDAY, MULTIPLE VOIDS.
== END 2022-05-26 15:34 | disposition home health service (06) | DRG 291 ==
LOC: ER 20:16 → PCU 23:48 → MEDS 05-24 22:07 → ENPENDDIS 05-25 13:27 → MEDS 05-26 15:34
PROVIDERS: Student in an Organized Health Care Education/Training Program; ADMIT Internal Medicine
PROC: 5A09357 Assistance with Respiratory Ventilation, Less than 24 Consecutive Hours, Continuous Positive Airway Pressure (ICD-10-PCS; principal; 2022-05-22)
DX: I11.0 Hypertensive heart disease with heart failure (principal); I50.33 Acute on chronic diastolic (congestive) heart failure; J96.01 Acute respiratory failure with hypoxia; I16.1 Hypertensive emergency; N17.9 Acute kidney failure, unspecified; I48.0 Paroxysmal atrial fibrillation; E11.9 Type 2 diabetes mellitus without complications; I25.10 Atherosclerotic heart disease of native coronary artery without angina pectoris; I16.0 Hypertensive urgency; E78.5 Hyperlipidemia, unspecified; M54.9 Dorsalgia, unspecified; G89.29 Other chronic pain; Z20.822 Contact with and (suspected) exposure to COVID-19; Z90.710 Acquired absence of both cervix and uterus; Z90.49 Acquired absence of other specified parts of digestive tract; Z98.890 Other specified postprocedural states; Z88.8 Allergy status to other drugs, medicaments and biological substances; Z88.2 Allergy status to sulfonamides; Z88.1 Allergy status to other antibiotic agents; Z79.899 Other long term (current) drug therapy; Z95.1 Presence of aortocoronary bypass graft; Z79.4 Long term (current) use of insulin; Z79.01 Long term (current) use of anticoagulants; Z79.811 Long term (current) use of aromatase inhibitors
CPT/HCPCS: 0241U; 36415; 71045; 80048; 80053; 82947; 83735; 83880; 84484; 85025; 85610; 93005; 93010; 93306; 94660; 94760; 94761; 94762; 96374; 99285-25; A9270; J0360; J1815; J1940; J7040

== ENCOUNTER 2024-06-26 11:32 | Emergency (ER) | payer OTHER, MEDICARE ==
[~2024-06-26] VITALS: Ht 152.4 cm; Wt 72.6 kg
[~2024-06-26 11:32] MED LIST changes: +AMLO5 PO; +METO25 PO; +METO50ER PO; +NAPROXEN500 MG PO; +PIOGLITAZONE HC15 MG PO
[2024-06-26 12:08] VITALS: BP 150/79
[2024-06-26] MEDS ORDERED: Diphth,Pertuss(Acell),Tet Vac 0.5 ML VIAL IM ONE (13:40)
== END 2024-06-26 14:16 | disposition home or self-care (01) ==
LOC: ER 11:32
DX: S01.81XA Laceration without foreign body of other part of head, initial encounter (principal); S51.812A Laceration without foreign body of left forearm, initial encounter; M25.562 Pain in left knee; E11.9 Type 2 diabetes mellitus without complications; I48.91 Unspecified atrial fibrillation; Z79.899 Other long term (current) drug therapy; Z79.01 Long term (current) use of anticoagulants; Z79.84 Long term (current) use of oral hypoglycemic drugs; Z79.4 Long term (current) use of insulin; W01.10XA Fall on same level from slipping, tripping and stumbling with subsequent striking against unspecified object, initial encounter
CPT/HCPCS: 12001; 70450; 73562-LT; 90471; 90715; 99284-25

== ENCOUNTER → 2024-10-02 | Outpatient (CLI) | payer MEDICARE, OTHER ==
[2024-10-03 16:20] LABS: Creatinine, Urine Random 53.3 mg/dL (27.00-270.00)
[2024-10-03 16:22] LABS: Microalb/Creat Ratio UR, Rand 70.169 mg/g (0.000-30.000); Microalbumin, Random Urine 37.4 mg/L (0.000-20.000)
== END ==
LOC: LAB 13:05 → LAB SHORT 13:05
PROVIDERS: Family Medicine
DX: E11.9 Type 2 diabetes mellitus without complications (principal); Z79.4 Long term (current) use of insulin
CPT/HCPCS: 82043; 82570

== ENCOUNTER 2024-11-02 07:52 | Inpatient (IN) | payer MEDICARE ==
[2024-11-02] VITALS (9 sets, daily range): BP systolic 96–119; BP diastolic 37–87
[~2024-11-02] VITALS: Ht 152.4 cm; Wt 85.0 kg
[~2024-11-02 07:52] MED LIST changes: -BISA5EC PO; +COLACE100 MG PO
[2024-11-02 09:58] LABS: BASOPHILS ABSOLUTE AUTO 0.02 K/mm3 (0.00-0.23); BASOPHILS PERCENT AUTO 0 % (0-2); EOSINOPHILS ABSOLUTE AUTO 0.02 K/mm3 (0.00-0.68); EOSINOPHILS PERCENT AUTO 0 % (0-6); Hematocrit 32.5 % (33.0-51.0); Hemoglobin 9.9 g/dL (11.5-16.0); IMMATURE GRAN ABSOLUTE AUTO 0.03 K/mm3 (0.00-0.10); IMMATURE GRAN PERCENT AUTO 0 % (0-1); LYMPHOCYTES ABSOLUTE AUTO 0.65 K/mm3 (0.84-5.20); LYMPHOCYTES PERCENT AUTO 7 % (21-46); MONOCYTES ABSOLUTE AUTO 0.46 K/mm3 (0.16-1.47); MONOCYTES PERCENT AUTO 5 % (4-13); Mean Corpuscular HGB Conc 30.5 g/dL (31.5-36.5); Mean Corpuscular Volume 90 fL (80-100); NEUTROPHILS ABSOLUTE AUTO 7.88 K/mm3 (1.96-9.15); NEUTROPHILS PERCENT AUTO 87 % (41-73); NRBC ABSOLUTE 0.00 K/mm3 (0.00-0.02); NRBC Auto 0.0 /100 WBC (0.0-0.2); Platelet Count 202 K/mm3 (150-400); RDW Coefficient Variation 15.1 % (11.7-14.2); RDW Standard Deviation 49.6 fL (35.1-46.3)
[2024-11-02 10:23] LABS: Source, Urine Straight Cath
[2024-11-02 10:37] LABS: Color, Urine Yellow (P-Yellow); Glucose Qualitative, Urine Neg (Neg); Ketones, Urine Neg (Neg); Leukocyte Esterase, Urine 1+ (Neg); Protein, Urine 4+ (Neg); Specific Gravity, Urine 1.025 (1.003-1.022); Urobilinogen, Urine NORM (Normal)
[2024-11-02 10:38] LABS: Bilirubin, Urine 2+ (Neg)
[2024-11-02 10:45] LABS: Alanine Aminotransfer (ALT/SGP 19.0 U/L (12-78); Albumin, Blood 3.4 g/dL (3.4-5.0); Albumin/Globulin Ratio 0.8 (0.8-1.8); Anion Gap 19.0 mmol/L (3-11); Aspartate Aminotrans (AST/SGOT 17.0 U/L (12-37); Bilirubin, Total 0.4 mg/dL (0.1-1.0); Blood Urea Nitrogen 146.0 mg/dL (8-24); CO2, Blood 14.0 mmol/L (21-32); Calcium, Blood 6.5 mg/dL (8.5-10.1); Chloride, Blood 105.0 mmol/L (98-108); Creatinine, Blood 6.99 mg/dL (0.40-1.00); Globulin, Blood 4.1 g/dL (2.2-4.0); Glucose, Blood 144.0 mg/dL (70-99); Potassium, Blood 7.1 mmol/L (3.5-5.5); Sodium, Blood 131.0 mmol/L (136-145); Total Protein, Blood 7.5 g/dL (6.4-8.2)
[2024-11-02] MEDS ORDERED: Calcium Gluconate 10% 100 MG/ML INJ IV ONE ×2 (10:50→10:55)
[2024-11-02] MEDS ORDERED: Albuterol 2.5 MG/3 ML VIAL INH SCH ×2 (10:50→10:55)
[2024-11-02] MEDS ORDERED: Insulin Regular 100 Unit/ML 1ML Dose IV ONE ×2 (10:50→10:55)
[2024-11-02] MEDS ORDERED: Darbepoetin (Pharmacy Consult) SC SCH (12:05)
[2024-11-02] MEDS ORDERED: Sodium Bicarb 8.4% Inj 100 MEQ in Sodium Chloride 0.45% 1,000 ML IV SCH (12:30)
[2024-11-02 12:41] LABS: Prothrombin Time Results 29.3 Sec (9.7-11.5)
[2024-11-02] MEDS ORDERED: CefTRIAXone Sodium 1,000 MG in NS 100 ML IV SCH (13:30)
[2024-11-02] MEDS ORDERED: Ondansetron HCl 2 MG / ML 2ML Vial IV PRN (13:40)
[2024-11-02] MEDS ORDERED: BUPRENORPHN-NA1 EACH SL (14:49)
[2024-11-02 16:56] LABS: Albumin, Blood 3.3 g/dL (3.4-5.0); Anion Gap 23 mmol/L (3-11); Blood Urea Nitrogen 149 mg/dL (8-24); CO2, Blood 15 mmol/L (21-32); Calcium, Blood 6.8 mg/dL (8.5-10.1); Chloride, Blood 100 mmol/L (98-108); Creatinine, Blood 7.18 mg/dL (0.40-1.00); Glucose, Blood 250 mg/dL (70-99); Phosphorus, Blood 12.3 mg/dL (2.5-4.9); Potassium, Blood 6.2 mmol/L (3.5-5.5); Sodium, Blood 132 mmol/L (136-145)
[2024-11-02 17:48] LABS: Albumin, Blood 3.2 g/dL (3.4-5.0); Anion Gap 20 mmol/L (3-11); Blood Urea Nitrogen 148 mg/dL (8-24); CO2, Blood 15 mmol/L (21-32); Calcium, Blood 6.7 mg/dL (8.5-10.1); Chloride, Blood 102 mmol/L (98-108); Creatinine, Blood 7.13 mg/dL (0.40-1.00); Glucose, Blood 246 mg/dL (70-99); Phosphorus, Blood 12.2 mg/dL (2.5-4.9); Potassium, Blood 5.8 mmol/L (3.5-5.5); Sodium, Blood 131 mmol/L (136-145)
[2024-11-02] MEDS ORDERED: Calcium Acetate 667 MG Gel Cap PO SCH (18:00)
[2024-11-02] MEDS ORDERED: Bumetanide 10 MG in Bag 1 BAG IV SCH (18:30)
[2024-11-02 19:10] LABS: Influenza A, PCR NEGATIVE (NEGATIVE); Influenza B, PCR NEGATIVE (NEGATIVE); Resp Syncytial Virus, PCR NEGATIVE (NEGATIVE); SARS-Cov-2 (COVID-19) PCR, MMC NEGATIVE (NEGATIVE)
--- NOTE | 2024-11-02 19:43 | NUR ---
EOS: PATIENT WITH MINIMAL IMPROVEMENT THROUHT THE SHIFT, PATIENT REMAINS ANURIC, BLADDER SCAN MULTIPLE TIMES WITH NO VISUALIZATION OF ANY URINE. SPOKE WITH DR. BARROS MULTIPLE TIMES IN [facility] TO CRITICAL LABS AND COMMUNITY LIAISON OFFICER AWARE. CURRENTLY PATIENT TO BE PLACED ON BUMEX DRIP AND CONTINUE PUSHES OF BUMEX WHEN I CALLED WITH 1810 BLADDER SCAN OF 0 DESPITE 4MG PUSH AT 1700. PATIENT ABLE TO MAKE NEEDS KNOWN, PLEASANT AND COOPERATIVE. DENIES CHEST PAIN PRESSURE OR SOB DIASTOLIC BLOOD PRESSURE LOW, STARTED ON MIDODRINE. PENDING ECHO AND US OF RENAL BLADDER IN SYSTEM. CURRNELTY ON RA WITH SPO2 >94%. ACUTE CONCERNS NOTED WITH DR. BARROS, AND HOSPITALIST WITH MANY NEW ORDERS. PLAN OF CARE CONTINUES.
[2024-11-02] MEDS ORDERED: Insulin Glargine-Yfgn 100 Unit/mL 3 ML SYR SC SCH (21:00)
[2024-11-02] MEDS ORDERED: Buprenorphine HCL/Naloxone HCL 2-0.5MG 1 EA SL SCH (21:00)
[2024-11-02] MEDS ORDERED: Bumetanide 0.25 MG/ML 10ML Vial IV ONE (22:00)
[2024-11-03] VITALS (14 sets, daily range): BP systolic 87–145; BP diastolic 32–61
[2024-11-03 03:12] LABS: Hematocrit 26.3 % (33.0-51.0); Hemoglobin 8.4 g/dL (11.5-16.0)
[2024-11-03 03:31] LABS: Prothrombin Time Results 36.6 Sec (9.7-11.5)
[2024-11-03 03:32] LABS: Magnesium, Blood 3.1 mg/dL (1.6-2.4)
[2024-11-03 03:53] LABS: Albumin, Blood 2.8 g/dL (3.4-5.0); Anion Gap 17 mmol/L (3-11); Blood Urea Nitrogen 150 mg/dL (8-24); CO2, Blood 19 mmol/L (21-32); Calcium, Blood 6.3 mg/dL (8.5-10.1); Chloride, Blood 101 mmol/L (98-108); Creatinine, Blood 6.98 mg/dL (0.40-1.00); Glucose, Blood 253 mg/dL (70-99); Phosphorus, Blood 11.5 mg/dL (2.5-4.9); Potassium, Blood 6.1 mmol/L (3.5-5.5); Sodium, Blood 131 mmol/L (136-145)
[2024-11-03] MEDS ORDERED: Insulin Regular 100 UNIT/ML 10ML Vial IV ONE (04:45)
[2024-11-03] MEDS ORDERED: CALCIUM GLUC IN NACL, ISO-OSM 50 ML IV ONE ×2 (04:55→06:15)
[2024-11-03] MEDS ORDERED: Insulin Regular 100 Unit/ML 1ML Dose IV ONE (05:00)
[2024-11-03] MEDS ORDERED: Miconazole Nitrate 2% 85 GM PWD TOP PRN (05:30)
--- NOTE | 2024-11-03 05:48 | NUR ---
UPDATE THIS RN AND PRIMARY RN NOTICED PATIENT OCCASIONALLY TWITCHIHNG AROUND 0300. AM LABS PULLED AT THIS TIME. CRITICAL RESULTS NOTIFIED TO PRIMARY RN. PRIMARY RN THEN NOTIFIED RESIDENT DR. RIVERA ABOUT CRITICAL AM LAB VALUES AND CAME DR. RIVERA TO BEDSIDE TO EVALUATE PATIENT. RESIDENT PLACED ORDERS TO TREAT CRITICAL POTASSIUM. DR. BARROS THEN NOTIFIED ABOUT VIKTORTENT'S LAB VALUES. ORDERS TO DC ALL MEDICATIONS TO TREAT CRITICAL HIGH POTASSIUM. DR. BARROS ALSO NOTIFIED ABOUT PATIENT TWITCHING. ORDER FOR STAT IONIZED CALCIUM TO BE DRAWN NOW AND MOJICA TO BE PLACED DUE TO 200mls IN BLADDER TOTAL FOR THIS SHIFT. WILL UPDATE DR. BARROS WITH IONIZED CALCIUM RESULTS.
[2024-11-03 06:02] LABS: pH Blood Venous 7.23 (7.34-7.37)
--- NOTE | 2024-11-03 06:15 | NUR ---
UPDATE RT CALLED THIS RN WITH LAB RESULTS OF IONIZED CALCIUM. RT RECOMMENDED VBG D/T CRITICAL RESULTS. VBG ORDER RECEIVED FROM DR. FERNANDO. CRITICAL RESULTS RECEIVED FROM RT AND RELAYED TO DR BARROS. SEE UPDATED ORDERS FROM DR. BARROS.
--- NOTE | 2024-11-03 06:49 | NUR ---
END OF SHIFT REPORT PT RECIEVED BY DAY RN. STARTED BUMEX DRIP AND IVF WERE RUNNING AT PRESCRIBED RATE. PT REPOSITIONED, CLEANED AND VAGINA AREA RED. PT REPORTS YEAST AND NYSTATIN POWDER TO BE ORDERED. PT BLADDER SCANNED THROUGHOUT NIGHT AND BY [phone] CC SCANNED. AM LABS HAD ELECTROLYTE IMBALANCES. ORDERS CHANGED FOR DR BARROS CONSULT AND MOJICA PLACED, IONIZED CALCIUM DRAWN, BICARB FLUIDS INCREASED TO 75 CC HR AND PT HAS NOON LABS TO BE DRAWN AND DAY RN TO CALL RENAL MD AT 1300 RESULTS. PT MAINTAINED MAP GREATER THAN 60 WITH BPS AND SCHEDULED MIDODRINE GIVEN W SCHEDULED MEDS. PT REPORTED PAIN TO BACK AND NIGHT MD ORDERED TYLENOL AND WAS GIVEN FOR CHRONIC BACK PAIN
[2024-11-03] MEDS ORDERED: Polyethylene Glycol 3350 17 gm PO SCH (09:00)
[2024-11-03 09:28] LABS: Albumin, Blood 3.1 g/dL (3.4-5.0); Anion Gap 18 mmol/L (3-11); Blood Urea Nitrogen 145 mg/dL (8-24); CO2, Blood 20 mmol/L (21-32); Calcium, Blood 6.4 mg/dL (8.5-10.1); Chloride, Blood 100 mmol/L (98-108); Creatinine, Blood 6.91 mg/dL (0.40-1.00); Glucose, Blood 190 mg/dL (70-99); Phosphorus, Blood 11.2 mg/dL (2.5-4.9); Potassium, Blood 5.9 mmol/L (3.5-5.5); Sodium, Blood 132 mmol/L (136-145)
--- NOTE | 2024-11-03 11:10 | NUR ---
SHIFT NOTE: CHANGES FROM PREVIOUS SHIFT. PATIENT IS NOW PRODUCING URINE WITH BUMEX FRIP AND IV PUSHES, BLOOD PRESSURE MAP >60. PATIENT IS MORE PAINFUL TODAY, COOPERATIVE PLEASANT REMAINS ALERT AND ORIENTED X 4 ON RA SPO2 >92%. DENIES CHEST PAIN/PERSSURE OR SOB AT REST.
[2024-11-03] MEDS ORDERED: Insulin Human Lispro 100 Units/ML 3ML Syringe SC SCH (11:30)
[2024-11-03 12:46] LABS: Creatinine, Blood 6.79 mg/dL (0.40-1.00); Potassium, Blood 5.9 mmol/L (3.5-5.5)
[2024-11-03] MEDS ORDERED: Darbepoetin Alfa In Albumn Sol 40 MCG/0.4 ML SC SCH (16:00)
[2024-11-03] MEDS ORDERED: DEXTROMETHORPHAN/BENZOCAINE 1 EACH LOZENGE MT PRN (16:50)
[2024-11-03] MEDS ORDERED: Phenol/Sodium Phenolate Oral Spray 180 ML MM PRN (16:50)
[2024-11-03 19:14] LABS: Albumin, Blood 3.0 g/dL (3.4-5.0); Anion Gap 19 mmol/L (3-11); Blood Urea Nitrogen 138 mg/dL (8-24); CO2, Blood 20 mmol/L (21-32); Calcium, Blood 6.6 mg/dL (8.5-10.1); Chloride, Blood 98 mmol/L (98-108); Creatinine, Blood 6.23 mg/dL (0.40-1.00); Glucose, Blood 268 mg/dL (70-99); Phosphorus, Blood 10.6 mg/dL (2.5-4.9); Potassium, Blood 5.5 mmol/L (3.5-5.5); Sodium, Blood 131 mmol/L (136-145)
--- NOTE | 2024-11-03 19:29 | NUR ---
EOS: CHANGES FROM ASSUMPTION ARE PATIENT IS HAVING SOME IRRITATION WITH THROAT,CEPACHOL AND CHLORASEPTIC PRN ORDER OBTAINED. LABS STILL TRENDING TOWARDS IMPROEMENT, RECIEVING IV PUSH BUMEX AND IV Gtt BUMEX. BICARB STILL INFUSING AT 75, RENAL US ECHO BOTH DONE. DENIES CHEST PAIN PRESSURE OR SOB. HAD TO HOLD MIDODRINE DUE TO SBP >130. PATIENT STILL NO BM, MIRALAX GIVEN. SPO2 >90% ON RA. ABDOMEN SLIGHTLY MORE DISTENDED HOSPITALIST AWARE. MOJICA PATENT DRAINING TO GRAIVTIY, CATH CARE PROVIDED BY THIS RN AT 1730. DENTURE CARE BY PCT. PLAN OF CARE CONTINUES.
[2024-11-04] VITALS (9 sets, daily range): BP systolic 99–161; BP diastolic 37–55
[2024-11-04 03:53] LABS: Hematocrit 29.5 % (33.0-51.0); Hemoglobin 9.6 g/dL (11.5-16.0)
[2024-11-04 04:08] LABS: Magnesium, Blood 2.9 mg/dL (1.6-2.4); Prothrombin Time Results 36.4 Sec (9.7-11.5)
[2024-11-04 04:31] LABS: Albumin, Blood 3.1 g/dL (3.4-5.0); Anion Gap 17 mmol/L (3-11); Blood Urea Nitrogen 139 mg/dL (8-24); CO2, Blood 22 mmol/L (21-32); Calcium, Blood 6.8 mg/dL (8.5-10.1); Chloride, Blood 99 mmol/L (98-108); Creatinine, Blood 5.96 mg/dL (0.40-1.00); Glucose, Blood 179 mg/dL (70-99); Phosphorus, Blood 10.5 mg/dL (2.5-4.9); Potassium, Blood 5.3 mmol/L (3.5-5.5); Sodium, Blood 133 mmol/L (136-145)
--- NOTE | 2024-11-04 05:02 | NUR ---
SHIFT SUMMARY PATIENT IS A&OX4. PATIENT CALLS APPROPRIATELY AND IS ABLE TO MAKE HER NEEDS KNOWN. PATIENT TAKES PILLS WHOLE WITH WATER. PATIENTS HEART RATE IN THE 40-50'S T/O SHIFT VIA TELEMETRY MONITORING. PATIENT HAS A MOJICA CATHETER IN PLACE THAT IS PATENT AND DRAINING TO GRAVITY. PATIENT HAS INCREASED EDEMA TO BLE. AM LABS CALLED INTO DOCTOR PAPO-DR. BARROS STOPPED BI-CARB INFUSION AND BUMEX GTT AND STARTED SODIUM BICARB PO PO DAILY AND BUMEX PO DAILY; SEE ORDERS FOR DOSEAGE. PATIENT IS PAINFUL TO TOUCH BLE. BLE ELEVATED WITH BED AND PILLOW. PATIENTS JULIA HOSE REMOVED AT BEDTIME. PATIENT DENIES SOB. PATIENT HAS REDNESS TO GROIN-POWDER APPLIED AFTER BED BATH. BED IS LOCKED IN THE LOWEST POSITION WITH CALL LIGHT IN REACH. CARE IS ONGOING.
[2024-11-04] MEDS ORDERED: Bumetanide 0.25 MG/ML 10ML Vial IV SCH (09:00)
--- NOTE | 2024-11-04 11:00 | NUR ---
ASSUMPTION OF CARE: CHANGES FROM PREVIOUS SHIFT IS PATIENT ABD STILL DISTENEDED. THROAT IRRITATION IMPROVED WITHOUT BUP, PATIENT STILL WITH NO BM, PATIENT NO LONGER INFUSING BICARB OR BUMEX. DENIES CHEST PAIN PRESSURE OR SOB AT REST. SPO2 >90% ON RA DENIES SOB. STILL VERY PAINFUL WITH GENERALIZED PAIN AND DISCOMFORT, VSS NO ACUTE CONCERNS FROM THIS RN, PT/OT TO WORK WITH PATIENT TODAY. PLAN OF CARE CONTINUES.
[2024-11-04 13:52] LABS: Ferritin, Serum 35.0 ng/mL (8-252); Total Iron Binding Capacity 303.0 ug/dL (250-450)
--- NOTE | 2024-11-04 15:17 | NUR ---
EOS: PATIENT CHANGES FROM ASSUMPTION. 1 X EPISODE OF NAUSEA, NO ZOFRAN NEEDED PROVIDER AWARE, WAS WITH ORTHOSTATIC CHANGE WITH PHYSICAL THERAPY. SELF IMPROVED. WAS ABLE TO HOLD DOSES OF MODIDRINE SYSTOLIC >130. NO SIGNIFCICANT ACUTE CHANGES. DENIES CHEST PAIN PRESSURE OR SOB. PCT PREFORMED CATH CARE. PLAN OF CARE COTINUES.
[2024-11-04 15:20] LABS: Anion Gap 15.0 mmol/L (3-11); Blood Urea Nitrogen 134.0 mg/dL (8-24); CO2, Blood 24.0 mmol/L (21-32); Calcium, Blood 6.9 mg/dL (8.5-10.1); Chloride, Blood 100.0 mmol/L (98-108); Creatinine, Blood 5.59 mg/dL (0.40-1.00); Glucose, Blood 249.0 mg/dL (70-99); Potassium, Blood 5.5 mmol/L (3.5-5.5); Sodium, Blood 133.0 mmol/L (136-145)
[2024-11-04] MEDS ORDERED: Insulin Glargine-Yfgn 100 Unit/mL 3 ML SYR SC SCH (21:00)
[2024-11-05 03:29] VITALS: BP 124/47
[2024-11-05 04:02] LABS: Hematocrit 29.2 % (33.0-51.0); Hemoglobin 9.4 g/dL (11.5-16.0)
[2024-11-05 04:16] LABS: Prothrombin Time Results 25.1 Sec (9.7-11.5)
[2024-11-05 04:20] LABS: Magnesium, Blood 3.1 mg/dL (1.6-2.4)
--- NOTE | 2024-11-05 04:37 | NUR ---
SHIFT SUMMARY. PATIENT IS A&OX 4 WITH SOME FORGETFULNESS NOTED. PATIENT REPORTS PAIN TO BLE-REPORTS SHE TAKES GABAPENTIN AT HOME FOR NEUROPATHY, CONFIRMED WITH HOME MED REC-WILL RELAY TO DAYSHIFT. PATIENT IS PLEASANT AND COOPERATIVE WITH CARE. AT BEGINNING OF SHIFT PATIENT HAD FRIENDS TO VISIT-PATIENTS SPIRITS APPEARED LIFTED WITH VISITORS. PATIENT SLEPT OFF AND ON T/O NIGHT. REDNESS TO GROIN AND ABD FOLD-MICONIZOLE POWDER APPLIED. PATIENT HAS MOJICA CATHETER IN PLACE THAT IS PATENT, DRAINING TO GRAVITY AND CONNECTED TO A SECUREMENT DEVICE. PATIENT DESATTED INTO THE MID 80'S 2LPM VIA NASAL CANNULA APPLIED-O2 RECOVERED WITH OXYGEN. PATIENTS BED IS LOCKED IN THE LOWEST POSITION WITH CALL LIGHT IN REACH. CARE IS ONGOIN.
[2024-11-05 04:50] LABS: Albumin, Blood 3.0 g/dL (3.4-5.0); Anion Gap 14 mmol/L (3-11); Blood Urea Nitrogen 137 mg/dL (8-24); CO2, Blood 25 mmol/L (21-32); Calcium, Blood 7.6 mg/dL (8.5-10.1); Chloride, Blood 100 mmol/L (98-108); Creatinine, Blood 5.49 mg/dL (0.40-1.00); Glucose, Blood 252 mg/dL (70-99); Phosphorus, Blood 9.7 mg/dL (2.5-4.9); Potassium, Blood 5.1 mmol/L (3.5-5.5); Sodium, Blood 134 mmol/L (136-145)
[2024-11-05 07:00] VITALS: BP 133/45
--- NOTE | 2024-11-05 12:41 | NUR ---
DISCUSSED CASE WITH BEDSIDE RN. ROUNDED ON PT SHE WAS ON THE PHONE. WILL ATTEMPT ANOTHER VISIT
--- NOTE | 2024-11-05 15:43 | NUR ---
ATTEMPTED VISIT THIS AFTERNOON. PT ASLEEP
[2024-11-05 16:15] VITALS: BP 144/50
--- NOTE | 2024-11-05 18:40 | NUR ---
EOS: PATIETN IS ON DECREASED DOSES OF LOKELMA, SLEPT FOR 4 HOURS IN THE MIDDLE OF THE DAY, DID NOT REQUIRE MIDODRINE. A/O X 4 ABLE TO MAKE NEEDS KNOWN, VERY PAINFUL, GABAPENTIN IN THE AM. TYLENOL PRN. SUBOXONE DC'D DUE TO THROAT IRRITATION. PATIENT HAS BEEN ABLE TO MAKE NEEDS KNOWN, BED BATH AND CATH CARE PERFORMED THIS EVENING, OF NOTE PATIETN WITH NO BM BUT EXTREMELY DECREASED MOBILITY HAS BEEN Q1-2 REPOSITIONS SKIN FOLDS OF LEFT LOWER ABD/ PANUS SILVER DRESSING AND NYSTATIN POWDER PLACED. PATIENT IS PLESANT AND SLOWLY IMPROVING. PLAN OF CARE CONTINUES
[2024-11-05 19:30] VITALS: BP 149/52
[2024-11-06] VITALS (7 sets, daily range): BP systolic 118–168; BP diastolic 39–52
[2024-11-06 04:58] LABS: Hematocrit 27.4 % (33.0-51.0); Hemoglobin 8.9 g/dL (11.5-16.0)
[2024-11-06 05:13] LABS: Prothrombin Time Results 18.2 Sec (9.7-11.5)
[2024-11-06 05:22] LABS: Magnesium, Blood 3.0 mg/dL (1.6-2.4)
[2024-11-06 05:43] LABS: Albumin, Blood 2.7 g/dL (3.4-5.0); Anion Gap 12 mmol/L (3-11); Blood Urea Nitrogen 128 mg/dL (8-24); CO2, Blood 28 mmol/L (21-32); Calcium, Blood 7.7 mg/dL (8.5-10.1); Chloride, Blood 101 mmol/L (98-108); Creatinine, Blood 4.57 mg/dL (0.40-1.00); Glucose, Blood 197 mg/dL (70-99); Phosphorus, Blood 9.7 mg/dL (2.5-4.9); Potassium, Blood 5.0 mmol/L (3.5-5.5); Sodium, Blood 136 mmol/L (136-145)
--- NOTE | 2024-11-06 06:19 | NUR ---
SHIFT SUMMARY: PT A&OX4, PLEASANT AND COOPERATIVE WITH CARE. VSS, ON 1L NC. IDIOVENTRICULAR RHYTHM HIGH 40'S-60'S. PT HAS SEVERE PAIN, SCHEDULED PAIN MEDICATIONS ADMINISTERED. PT TOLERATING A CONS CARB/RENAL, SOFT AND BITE SIZE DIET. SHE TAKES HER PILLS WHOLE, ONE AT A TIME WITH PUDDING. NOOB THIS SHIFT, REPOSITIONING TOLERATED. MOJICA CATHETER DRAINING ADEQUATE AMOUNTS OF CLEAR, YELLOW URINE TO GRAVITY. NO BM THIS SHIFT, BOWEL CARE ADMINISTERED. PT IS PASSING FLATUS. MORNING LAB REPORT CALLED AND VERBALLY GIVEN TO DR BARROS. BED IN LOWEST POSITION, CALL LIGHT WITHIN REACH.
--- NOTE | 2024-11-06 18:53 | NUR ---
PT SUMMARY; PT HAS BEEN BED REST FOR THE SHIFT REPOSITIONED Q2HRS AND FOR COMFORT, ATTEMPTED TO GET UP IN THE CHAIR FOR LUNCH WITH OCCUPATIONAL THERAPIST PT WAS TOO PAINFUL ON BILATERAL LEGS AND FEET DAUGHTER IN LAW REPORTED PT HAS REALLY BAD ARTHRITIS. PT ATTEMPTED TWICE AND IT WAS TOO PAINFUL AND NOT SUCCESSFUL. POOR APPETITE PT HAS BEEN DRINKING NEPRO. PT ALSO HAS NOT VOIDED FOR THE SHIFT, BLADDER SCANNED AT AROUND 1000A PT HAS 150MLS IN THE BLADDER THEN BEFORE END OF SHIFT HAS 545MLS, STRAIGHT CATH PERFORMED AND HAD 900MLS URINE OUT, DR JETT MADE AWARE, PT ALSO HAS NOT HAD RESULTS WIHT BOWEL CARE YET, LACTULOSE ADDED TO REGIME. DENTAL HYGEINIST REPORTED DENTAL ABSCESS MADE AWARE WELL, PT STARTED ON PO ABX. PAIN MEDS GIVEN ONCE FOR THE SHIFT. VITALS HRR IDIOVENTRICULAR RHYTHM 60'S, SBP 130'S MAP >60'S, SATS ABOVE 95% ON 1L OF O2, AFEBRILE. NO OTHER ISSUES AT THIS TIME WILL REPORT TO ONCOMING SHIFT
[2024-11-07] VITALS (7 sets, daily range): BP systolic 110–174; BP diastolic 39–59
--- NOTE | 2024-11-07 00:36 | NUR ---
TRANSFER TO MEDICAL - ASSUMED CARE AT 1900. PT A/OX4, ENDORSES GENERALIZED PAIN WITH MVMT. TREATING PER EMAR. ON RA SATS ABOVE 90%. HR IN 60'S, SYSTOLIC BP STABLE, DIASTOLIC IN 40'S, MAP ABOVE 65. NORMAL SINUS RHYTHM. REPORT GIVEN TO YOHAN ALEMAN, PT TRANSFERRED TO MEDICAL FLOOR AT APPROX 2020 WITH ALL BELONGINGS.
[2024-11-07 05:51] LABS: Hematocrit 27.7 % (33.0-51.0); Hemoglobin 9.0 g/dL (11.5-16.0)
[2024-11-07 06:07] LABS: Prothrombin Time Results 16.0 Sec (9.7-11.5)
--- NOTE | 2024-11-07 06:10 | NUR ---
SHIFT SUMMARY: PATIENT IS A&OX4. PER CONE MARKER PATIENTS TELE SHOWED SINUS SRAVANI @ 56 BPM WITH A BBB. PATIENT WAS BLADDER SCANNED PER PROTOCOL WITH THE LAST ONE BEING AT 0600 THIS MORNING WITH ABOUT 300ML IN BLADDER. PATIENT REPORTS A 6/10 PAIN IN HER LEGS/HANDS - SHE WAS GIVEN HER PO TYLENOL THAT IS PRN. PATIENT REFUSED MOST OF THE SHIFT BEING REPOSITIONED, BUT SHE WAS MOVING HER LEGS AND ARMS INTERMITTENTLY THROUGHOUT THE NIGHT WHEN AWAKE. NO BOWEL MOVEMENT ON THIS SHIFT. PATIENT IS CURRENTLY ON 4L NC WITH >90% OXYGEN SATS. DENIES SHORTNESS OF BREATH OR DYSPNEA AT THIS TIME. PATIENT CALLS APPROPRIATLEY WITH CALL LIGHT IN REACH.
[2024-11-07 06:19] LABS: Magnesium, Blood 3.2 mg/dL (1.6-2.4)
[2024-11-07 06:25] LABS: Albumin, Blood 2.8 g/dL (3.4-5.0); Anion Gap 13 mmol/L (3-11); Blood Urea Nitrogen 144 mg/dL (8-24); CO2, Blood 26 mmol/L (21-32); Calcium, Blood 8.6 mg/dL (8.5-10.1); Chloride, Blood 101 mmol/L (98-108); Creatinine, Blood 4.01 mg/dL (0.40-1.00); Glucose, Blood 236 mg/dL (70-99); Phosphorus, Blood 9.0 mg/dL (2.5-4.9); Potassium, Blood 4.6 mmol/L (3.5-5.5); Sodium, Blood 135 mmol/L (136-145)
[2024-11-07] MEDS ORDERED: Bumetanide 0.25 MG/ML 10ML Vial IV ONE (06:35)
--- NOTE | 2024-11-07 06:39 | NUR ---
LAB CALLED THIS NURSE REPORTING A CRITICAL PHOS OF 9.0 ON THIS PATIENT. THIS NURSE THEN CALLED THE CRITICAL LAB TO BOTH TO DR. GAMBINO AND DR. BARROS. NO NEW ORDERS FROM DR. GAMBINO. DR. BARROS ORDERED 2MG IV BUMEX TO BE GIVEN NOW - IF PATIENT IS NOT ABLE TO VOID SPONTANEOUSLY THEN PLACE MOJICA CATHETER - AND ALSO CHANGED THE BID ORDER OF IV BUMEX FROM 3MG TO 4MG BID. ORDERS HAVE BEEN PLACED PER DR. RODRIGUEZ TELEPHONE ORDERS.
[2024-11-07] MEDS ORDERED: Insulin Glargine-Yfgn 100 Unit/mL 3 ML SYR SC SCH (09:00)
[2024-11-07] MEDS ORDERED: Lactobacil 2-S.Thermo-Bifido 1 1 Cap PO SCH (09:00)
--- NOTE | 2024-11-07 11:13 | NUR ---
MET WITH PATIENT TO DISCUSS GOALS. SHE EXPRESSED THAT SHE IS STRUGGLING WITH WORKING WITH PHYSICAL THERAPY DUE TO PAIN IN HER LEGS AND FEET. SHE REPORTED THAT SHE HAS A POLST AT HOME. REQUESTED SHE PROVIDE A COPY IF POSSIBLE. SHE EXPRESSED THAT SHE SELECTED DNR AND COMFORT MEASURES ON HER POLST. WE DISCUSSED HOSPICE AN OPTION. SHE RELAYED THAT SHE ISN'T SURE SHE IS READY FOR THAT YET. WE DISCUSSED HOSPICE FOCUS ON COMFORT AND QUALITY. ON THIS TIME SHE IS WANTING TO GO TO SNF AND TRY TO GET BACK TO HER BASELINE.
--- NOTE | 2024-11-07 17:54 | NUR ---
End of shift summary: Patient is alert and oriented x3 with occasional forgetfulness noted. Patient with no acute changes this shift. All medications administered per EMAR. Patient with new 14F major catheter in place due to retention. Patient with complaint of pain and medication administered with noted relief. Patient with no complaint of chest pain or pressure, SOB or N/V/D. Patient utilizing call light appropriately; call light within reach, bed in lowest position. Will continue to monitor until next shift nurse arrives and report is given.
[2024-11-08 04:30] VITALS: BP 121/50
--- NOTE | 2024-11-08 05:16 | NUR ---
SHIFT SUMMARY; PATIENT SLEPT IN LONG INTERVALS, AFTER PAIN MEDS AT HS. DID HAVE A BEDSIZED INCONT. OF LIQUID STOOL. BOWEL MEDS WITHHELD. TELE SB 58 WITH A BBB.
[2024-11-08 06:16] LABS: Hematocrit 27.5 % (33.0-51.0); Hemoglobin 8.8 g/dL (11.5-16.0)
[2024-11-08 06:29] LABS: Prothrombin Time Results 16.5 Sec (9.7-11.5)
[2024-11-08 06:35] LABS: Albumin, Blood 2.6 g/dL (3.4-5.0); Anion Gap 11 mmol/L (3-11); Blood Urea Nitrogen 135 mg/dL (8-24); CO2, Blood 28 mmol/L (21-32); Calcium, Blood 8.3 mg/dL (8.5-10.1); Chloride, Blood 104 mmol/L (98-108); Creatinine, Blood 3.22 mg/dL (0.40-1.00); Glucose, Blood 248 mg/dL (70-99); Phosphorus, Blood 7.5 mg/dL (2.5-4.9); Potassium, Blood 4.0 mmol/L (3.5-5.5); Sodium, Blood 139 mmol/L (136-145)
[2024-11-08 07:38] VITALS: BP 101/35
[2024-11-08 11:57] VITALS: BP 144/54
[2024-11-08 14:34] VITALS: BP 155/47
[2024-11-08 15:22] VITALS: BP 116/47
[2024-11-08] MEDS ORDERED: Lidocaine HCl 4% Cream 5 GM TOP SCH (15:35)
--- NOTE | 2024-11-08 15:57 | NUR ---
PATIENT HAS BEEN REFUSING TO WORK WITH PT DUE TO DISCOMFORT IN HER LEGS. DISCUSSED WITH AUTOMOBILE ASSEMBLER. COORDINATED WITH PHARMACY AND SPOKE TO PROVIDER. SUSPISION THAT SYMPTOMS MAY IMPROVE HER RENAL FUNCTION IMPROVES. DISCUSSED ADDING LIDOCANE TO PATIENTS REGIMINE.
--- NOTE | 2024-11-08 19:17 | NUR ---
SHIFT SUMMARY: PT A&O X4. PLEASANT AND COOPERATIVE WITH CARE. MOJICA IN PLACE DRAINING LIGHT YELLOW URINE TO GRAVITY. PT/OT ATTEMPTED TO WORK WITH PT BUT PT STATED SHE WAS TOO PAINFUL. CALL FROM TELE THIS AM PT HR DROPPED INTO 40'S. PG FLUSHES AND DRAWS WELL. HELD BOWEL MEDS THIS AM PER INFORMATICS MANAGER RN PT HAD MULTIPLE LOOSE BM'S OVERNIGHT. CALL LIGHT IN REACH. BED IN LOWEST POSITION.
[2024-11-08 20:37] VITALS: BP 162/56
[2024-11-08] MEDS ORDERED: Insulin Glargine-Yfgn 100 Unit/mL 3 ML SYR SC SCH (21:00)
[2024-11-09] VITALS (9 sets, daily range): BP systolic 108–170; BP diastolic 38–68
--- NOTE | 2024-11-09 06:16 | NUR ---
SHIFT SUMMARY; PATIENT SLEPT IN LONG INTERVALS, GIVEN PRN DOSE OF TYLENOL FOR PAIN. NO BM'S ATONIGHT, BLADDER TRAINING DURING THE NIGHT. BP ALMOST HIT PARAMETER FOR MEDICATION. SHE IS PAINFUL EVERYWHERE AND DOES NOT LIKE TO MOVE OR BE TOUCHED. TELE SR 64 WITH A BBB.
[2024-11-09 07:49] LABS: Hematocrit 28.0 % (33.0-51.0); Hemoglobin 8.9 g/dL (11.5-16.0)
[2024-11-09 08:04] LABS: Prothrombin Time Results 19.7 Sec (9.7-11.5)
[2024-11-09 08:14] LABS: Albumin, Blood 2.8 g/dL (3.4-5.0); Anion Gap 9 mmol/L (3-11); Blood Urea Nitrogen 136 mg/dL (8-24); CO2, Blood 31 mmol/L (21-32); Calcium, Blood 9.0 mg/dL (8.5-10.1); Chloride, Blood 104 mmol/L (98-108); Creatinine, Blood 2.73 mg/dL (0.40-1.00); Glucose, Blood 176 mg/dL (70-99); Magnesium, Blood 3.0 mg/dL (1.6-2.4); Phosphorus, Blood 6.3 mg/dL (2.5-4.9); Potassium, Blood 4.3 mmol/L (3.5-5.5); Sodium, Blood 140 mmol/L (136-145)
[2024-11-09] MEDS ORDERED: Insulin Human Lispro 100 Units/ML 3ML Syringe SC SCH (17:35)
--- NOTE | 2024-11-09 18:15 | NUR ---
SHIFT SUMMARY: PATIENT PLEASANT AND COOPERARTIVE THROUGHOUT THIS SHIFT. PATIENT RUNNING NSR c BBB. MIDODRINE ORDER CHANGED TO PRN D/T ELEVATED BP THROUGHOUT THIS DAY. BLADDER TRAINING ATTEMPTED, NO IMPROVEMENT. GABAPENTIN ORDERED CHANGED TO BID D/T CONTINUED PAIN AND DISCOMFORT IN BL FEET. BUMEX D/C AND LASIX STARTED THIS SHIFT. SMALL WOUND ON L BUTTOCK NOTED THIS SHIFT. MEPILEX PLACED AND PICTURES IN CHART. HUMALOG SC CHANGED FROM LOW TO HIGH D/T INCREASING INSULIN DEMAND. PLAN OF CARE ONGOING AT THIS TIME. WILL CONTINUE TO MONITOR.
[2024-11-10 04:30] VITALS: BP 158/53
[2024-11-10 05:02] LABS: Hematocrit 26.6 % (33.0-51.0); Hemoglobin 8.5 g/dL (11.5-16.0)
[2024-11-10 05:17] LABS: Prothrombin Time Results 23.0 Sec (9.7-11.5)
[2024-11-10 05:23] LABS: Magnesium, Blood 2.9 mg/dL (1.6-2.4)
[2024-11-10 05:24] LABS: Albumin, Blood 2.4 g/dL (3.4-5.0); Anion Gap 9 mmol/L (3-11); Blood Urea Nitrogen 133 mg/dL (8-24); CO2, Blood 32 mmol/L (21-32); Calcium, Blood 8.7 mg/dL (8.5-10.1); Chloride, Blood 103 mmol/L (98-108); Creatinine, Blood 2.47 mg/dL (0.40-1.00); Glucose, Blood 167 mg/dL (70-99); Phosphorus, Blood 5.2 mg/dL (2.5-4.9); Potassium, Blood 4.2 mmol/L (3.5-5.5); Sodium, Blood 140 mmol/L (136-145)
[2024-11-10 07:10] VITALS: BP 137/59
[2024-11-10] MEDS ORDERED: Insulin Glargine-Yfgn 100 Unit/mL 3 ML SYR SC SCH (09:00)
[2024-11-10] MEDS ORDERED: Polyethylene Glycol 3350 17 gm PO PRN (09:24)
[2024-11-10 11:18] VITALS: BP 137/40
[2024-11-10] MEDS ORDERED: Insulin Human Lispro 100 Units/ML 3ML Syringe SC SCH (11:30)
[2024-11-10 17:02] VITALS: BP 153/46
--- NOTE | 2024-11-10 18:21 | NUR ---
SHIFT SUMMARY: PT A&O X4. PLEASANT AND COPERATIVE WITH CARE. ATTEMPTED TO CHANGE GABAPENTIN TO TID BUT CHANGED BACK TO BID PER PHARMACY FOR BILAT FOOT AND LEG PAIN. [place] IN PLACE DRAINING LIGHT YELLOW URINE TO GRAVITY. TELE IN PLACE RUNNING SINUS RHYHT. BOWEL MEDS D/C THIS SHIFT. CALL LIGHT IN REACH. BED IN LOEST POSITION.
[2024-11-10 21:16] VITALS: BP 136/42
[2024-11-11 00:23] VITALS: BP 119/40
[2024-11-11 05:06] VITALS: BP 139/60
[2024-11-11 05:56] LABS: Hematocrit 27.2 % (33.0-51.0); Hemoglobin 8.5 g/dL (11.5-16.0)
[2024-11-11 06:11] LABS: Prothrombin Time Results 21.9 Sec (9.7-11.5)
[2024-11-11 06:13] LABS: Albumin, Blood 2.5 g/dL (3.4-5.0); Anion Gap 7 mmol/L (3-11); Blood Urea Nitrogen 147 mg/dL (8-24); CO2, Blood 36 mmol/L (21-32); Calcium, Blood 9.2 mg/dL (8.5-10.1); Chloride, Blood 100 mmol/L (98-108); Creatinine, Blood 2.40 mg/dL (0.40-1.00); Glucose, Blood 114 mg/dL (70-99); Magnesium, Blood 2.9 mg/dL (1.6-2.4); Phosphorus, Blood 4.9 mg/dL (2.5-4.9); Potassium, Blood 4.2 mmol/L (3.5-5.5); Sodium, Blood 139 mmol/L (136-145)
--- NOTE | 2024-11-11 06:24 | NUR ---
SUMMARY ALERT & ORIENTED. VSS ON 2L O2 VIA NC. STILL UNABLE TO DO PT OR AMBULATION DUE TO SWELLING LEGS AND FEET W/ SEVERE PAIN. APPLIED LIDOCAINE APPROPRIATELY. IFC DRAINING ADEQUATE AMT. CBG STILL RANGING AROUND 200. FOR POSSIBLE DC TO [facility] TODAY. NO BM TONIGHT.
[2024-11-11 08:29] VITALS: BP 144/50
[2024-11-11] MEDS ORDERED: CALCITRIOL0.5 MC1 PO (12:17)
[2024-11-11] MEDS ORDERED: Calcium Acetat667 MG PO (12:17)
[2024-11-11] MEDS ORDERED: Calcium Carbon500 MG PO (12:18)
[2024-11-11] MEDS ORDERED: HUMALOG KW100 UNIT/1 SC (12:19)
[2024-11-11] MEDS ORDERED: ULTRA LIDO60 GM TOP (12:20)
[2024-11-11] MEDS ORDERED: MICONAZOLE NITR85 GM TOP (12:21)
[2024-11-11] MEDS ORDERED: SODBIC650 PO (12:23)
[2024-11-11] MEDS ORDERED: Chloraseptic177 ML PO (12:23)
[2024-11-11] MEDS ORDERED: BUMETANIDE2 M5 PO (12:23)
--- NOTE | 2024-11-11 14:15 | NUR ---
PATIENT D/C'D TO [facility], DC PACKET SENT WITH DANCE CHOREOGRAPHER. BELONGINGS PACKED UP AND SENT WITH PATIENT. REPORT CALLED TO [facility]. PATIENT DENIES ANY FURTHER QUESTIONS OR CONCERNS.
--- NOTE | 2024-11-11 15:10 | NUR ---
ATTEMPTED TO MEET WITH PT TO DISCUSS PT CONCERNS. HOWEVER, SHE WAS IN THE MIDDLE OF PACKING UP TO LEAVE TO SNF, AND STATES SHE PLANS TO PARTICIPATE.
== END 2024-11-11 14:38 | DRG 682 ==
LOC: ER 07:52 → MEDS 12:11 → ERHOLD 12:11 → PCU 12:11 → MEDS 11-06 20:33
PROVIDERS: Internal Medicine; Internal Medicine Nephrology; Physician Assistant; Student in an Organized Health Care Education/Training Program; ADMIT Student in an Organized Health Care Education/Training Program
PROC: 3E03329 Introduction of Other Anti-infective into Peripheral Vein, Percutaneous Approach (ICD-10-PCS; principal; 2024-11-02)
PROC: 0T9B70Z Drainage of Bladder with Drainage Device, Via Natural or Artificial Opening (ICD-10-PCS; principal; 2024-11-02)
DX: N17.9 Acute kidney failure, unspecified (principal); I50.33 Acute on chronic diastolic (congestive) heart failure; N39.0 Urinary tract infection, site not specified; E87.0 Hyperosmolality and hypernatremia; I13.0 Hypertensive heart and chronic kidney disease with heart failure and stage 1 through stage 4 chronic kidney disease, or unspecified chronic kidney disease; E87.1 Hypo-osmolality and hyponatremia; E87.20 Acidosis, unspecified; Z66 Do not resuscitate; R00.1 Bradycardia, unspecified; I48.0 Paroxysmal atrial fibrillation; I25.10 Atherosclerotic heart disease of native coronary artery without angina pectoris; E78.5 Hyperlipidemia, unspecified; M54.9 Dorsalgia, unspecified; G89.29 Other chronic pain; E87.5 Hyperkalemia; N18.4 Chronic kidney disease, stage 4 (severe); E11.22 Type 2 diabetes mellitus with diabetic chronic kidney disease; D63.1 Anemia in chronic kidney disease; N25.81 Secondary hyperparathyroidism of renal origin; E83.51 Hypocalcemia; E83.39 Other disorders of phosphorus metabolism; I27.20 Pulmonary hypertension, unspecified; I95.9 Hypotension, unspecified; K59.00 Constipation, unspecified; R33.9 Retention of urine, unspecified; F11.90 Opioid use, unspecified, uncomplicated; E66.9 Obesity, unspecified; R19.7 Diarrhea, unspecified; M79.604 Pain in right leg; M79.605 Pain in left leg; Z88.2 Allergy status to sulfonamides; Z88.8 Allergy status to other drugs, medicaments and biological substances; Z95.1 Presence of aortocoronary bypass graft; Z90.49 Acquired absence of other specified parts of digestive tract; Z90.710 Acquired absence of both cervix and uterus; Z98.890 Other specified postprocedural states; Z88.1 Allergy status to other antibiotic agents; Z87.19 Personal history of other diseases of the digestive system; Z79.899 Other long term (current) drug therapy; Z79.4 Long term (current) use of insulin; Z79.01 Long term (current) use of anticoagulants; Z68.32 Body mass index [BMI] 32.0-32.9, adult
CPT/HCPCS: 36415; 51701; 51798; 71045; 76770; 80048; 80053; 80069; 81001; 82330; 82550; 82565; 82607; 82728; 82746; 82803; 82947; 83540; 83550; 83735; 83880; 84132; 85014; 85018; 85025; 85610; 87086; 87637; 93005; 93010; 93306; 94762; 96374; 96375; 97110; 97161; 97166; 97530; 97530-CQ; 99284-25; A9270; C1751; J0572; J0612; J0696; J0881; J1815; J1938; J2405